=== PATIENT | male | born 1980 | race Caucasian/White ===

== ENCOUNTER → 2018-02-03 10:42 | Outpatient (CLI) | payer OTHER, SELFPAY ==
[2018-02-03 11:30] LABS: Basophils # 0.1 K/mm3 (0-0.2); Basophils % 0.7 % (0.1-2.0); Eosinophils # 0.3 K/mm3 (0.0-0.4); Eosinophils % 3.2 % (0.1-12.0); Hematocrit 46.7 % (42.0-52.0); Hemoglobin 15.5 g/dL (14.1-18.0); Lymphocytes # 2.4 K/mm3 (0.7-4.5); Lymphocytes % 27.8 % (10-50); Mean Corpuscular HGB Conc 33.2 g/dL (31.8-35.4); Mean Corpuscular Hemoglobin 31.4 pg (27.0-31.2); Mean Corpuscular Volume 94.4 fl (80-94); Mean Platelet Volume 8.4 fl (7.4-10.4); Monocytes # 0.5 K/mm3 (0.1-1.0); Monocytes % 6.3 % (1.7-9.3); Neutrophils # 5.3 K/mm3 (1.8-7.8); Neutrophils % 62.1 % (37.0-80.0); Platelet Count 290 K/mm3 (142-424); Red Blood Count 4.95 M/mm3 (4.60-6.20); White Blood Count 8.5 K/mm3 (4.8-10.8)
[2018-02-03 12:41] LABS: Potassium 4.8 mmoL/L (3.5-5.1); Sodium 141 mmol/L (136-145)
[2018-02-03 12:42] LABS: Alanine Aminotransferase 76 U/L (12-78); Albumin/Globulin Ratio 1.2 (1.1-1.8); Alkaline Phosphatase 79 U/L (46-116); Anion Gap 13.8 mEq/L (5-15); Aspartate Amino Transferase 18 U/L (15-37); Bilirubin,Total 0.6 mg/dL (0.2-1.0); Blood Urea Nitrogen 11 mg/dL (7-18); Calcium 9.1 mg/dL (8.5-10.1); Carbon Dioxide 29 mmol/L (21.0-32.0); Chloride 103 mmol/L (98-107); Chol/HDL Ratio 8.3 (1-3.5); Cholesterol 283 mg/dL (140-200); Creatinine,Serum 0.98 mg/dL (0.70-1.30); Estimated Glomerular Filt Rate 85 ml/min (>60); Free Thyroxine Index 2.6 ug/dL (5.93-13.13); GFR (African American) 103 ML/MIN (>60); Globulin 3.3 gm/dl (1.3-3.2); Glucose 95 mg/dL (74-106); HDL Cholesterol 34 mg/dL (27-67); LDL Cholesterol 198 mg/dL (0-130); Thyroid Stimulating Hormone 1.23 uIU/ml (0.358-3.740); Total Protein,Serum 7.3 gm/dL (6.4-8.2); Triglycerides 253 mg/dL (30-200); Triiodothryronine (T3) Uptake 32 % (31-39); VLDL Cholesterol 51 mg/dL (0-40)
[2018-02-04 21:29] LABS: Testosterone,Total 511 ng/dL (264-916); Vitamin B12 408 pg/mL (232-1245)
[2018-02-05 14:11] LABS: Vitamin D 25 Hydroxy 17.8 ng/mL (30.0-100.0)
== END ==
PROVIDERS: Visit Provider Internal Medicine Adolescent Medicine
DX: Z00.00 Encounter for general adult medical examination without abnormal findings (principal); R53.81 Other malaise; R53.83 Other fatigue
CPT/HCPCS: 36415; 80053; 80061; 82607; 82652; 84403; 84436; 84443; 84479; 85025

== ENCOUNTER → 2018-05-09 11:26 | Outpatient (CLI) | payer OTHER, SELFPAY ==
--- NOTE | 2018-05-09 11:32 | XR_ITS ---
XR knee LT 3V HISTORY: ITS.REASON: LT KNEE PAIN ORDERING PHYSICIAN: Antonio Kwon MD PATIENT AGE: 37 years COMPARISON: None FINDINGS: No fracture or dislocation. No lytic or blastic change. Normal mineralization. No significant arthritic changes evident. No other significant findings IMPRESSION: Negative Knee
== END ==
PROVIDERS: PCP Internal Medicine Adolescent Medicine; Visit Provider Internal Medicine Adolescent Medicine
DX: M25.562 Pain in left knee (principal)
CPT/HCPCS: 73562

== ENCOUNTER → 2019-12-21 13:07 | Outpatient (CLI) | payer OTHER, SELFPAY | PROVIDERS: Visit Provider Nurse Practitioner Family | DX: Z03.818 Encounter for observation for suspected exposure to other biological agents ruled out (principal) | CPT/HCPCS: U0003 ==

== ENCOUNTER → 2020-05-20 11:20 | Outpatient (CLI) | payer BC, SELFPAY ==
--- NOTE | 2020-05-20 11:29 | XR_ITS ---
PROCEDURE: XR KNEE RT 3V CLINICAL INDICATION: RT MEDIAL KNEE PAIN COMPARISON: CR [id number] XR knee LT 3V from 05/09/2018 FINDINGS: No fracture or dislocation. No lytic or blastic change. There is normal mineralization. There are mild osteoarthritic changes of the medial compartment. There is a small suprapatellar effusion. Other findings:None. IMPRESSION: Minimal osteoarthritic change with small knee joint effusion Dictated by: Merlin Beltrán MD 05/20/2020 12:24 Merlin Beltrán MD in [place] 05/20/2020 12:24
== END ==
PROVIDERS: PCP Internal Medicine Adolescent Medicine; Visit Provider Internal Medicine Adolescent Medicine
DX: M25.561 Pain in right knee (principal)
CPT/HCPCS: 73562

== ENCOUNTER → 2020-05-22 15:57 | Outpatient (CLI) | payer BC, SELFPAY ==
--- NOTE | 2020-05-22 16:04 | MR_ITS ---
PROCEDURE: MR KNEE RT WO CON CLINICAL INDICATION: RT MEDIAL KNEE PAIN Pt states he stood up about 2 weeks ago and something popped in his rt knee. Has had medial rt knee pain since. Prior rt knee x-ray done 05/20/2020. COMPARISON: CR XR KNEE RT 3V from 05/20/2020 TECHNIQUE: Routine multiplanar multi echo sequences are performed without gadolinium enhancement. FINDINGS: The cruciate ligaments, collateral ligaments, patellar tendon, and quadriceps tendon have an unremarkable appearance. A complex tear involves the posterior horn of the medial meniscus with both longitudinal and horizontal tear. Horizontal component extends anteriorly to the body of the medial meniscus with suggestion of a tiny meniscal cyst as seen on coronal images series 8, image 16 measuring approximately 2-3 mm. There is some bone marrow edema at this region involving the proximal tibia suggesting mild bone bruise. There is a small knee joint effusion. Small Bryson's cyst is present. There are mild osteoarthritic changes involving all 3 compartments. The patellar cartilage is preserved. IMPRESSION: Complex tear involves the posterior horn of the medial meniscus with extension into the body of the medial meniscus with a small meniscal cyst. Mild osteoarthritic changes with small knee joint effusion and minimal bone bruise of the medial and proximal aspect of the tibia Dictated by: Merlin Beltrán MD 05/24/2020 08:22 Merlin Beltrán MD in [place] 05/24/2020 08:22
== END ==
PROVIDERS: PCP Internal Medicine Adolescent Medicine; Visit Provider Internal Medicine Adolescent Medicine
DX: M25.561 Pain in right knee (principal)
CPT/HCPCS: 73721

== ENCOUNTER → 2020-05-28 12:53 | Outpatient (CLI) | payer BC, SELFPAY ==
--- NOTE | 2020-05-28 12:58 | XR_ITS ---
PROCEDURE: XR KNEE RT 4V CLINICAL INDICATION: RT knee pain COMPARISON: CR [id number] XR knee LT 3V from 05/09/2018 CR XR KNEE RT 3V from 05/20/2020 FINDINGS: No fracture or dislocation. No lytic or blastic change. There is normal mineralization. Minimal osteoarthritic changes are present involving the medial compartment. There is increased soft tissue density in the suprapatellar region suggesting small knee joint effusion. Other findings:None. IMPRESSION: Overall no change minimal osteoarthritic change medial compartment with small knee joint effusion Dictated by: Merlin Beltrán MD 05/28/2020 14:29 Merlin Beltrán MD in [place] 05/28/2020 14:29
== END ==
PROVIDERS: PCP Internal Medicine Adolescent Medicine; Visit Provider Orthopaedic Surgery
DX: M25.561 Pain in right knee (principal)
CPT/HCPCS: 73564

== ENCOUNTER → 2020-06-01 11:08 | Outpatient (CLI) | payer BC, SELFPAY ==
[2020-06-01 11:25] LABS: Basophils # 0.1 K/mm3 (0-0.2); Basophils % 0.6 % (0.1-2.0); Eosinophils # 0.3 K/mm3 (0.0-0.4); Eosinophils % 3.3 % (0.1-12.0); Hematocrit 43.6 % (42.0-52.0); Lymphocytes # 3.1 K/mm3 (0.7-4.5); Lymphocytes % 31.1 % (10-50); Mean Corpuscular HGB Conc 34.3 g/dL (31.8-35.4); Mean Corpuscular Hemoglobin 31.8 pg (27.0-31.2); Mean Corpuscular Volume 92.7 fl (80-94); Mean Platelet Volume 8.3 fl (7.4-10.4); Monocytes # 0.7 K/mm3 (0.1-1.0); Monocytes % 6.5 % (1.7-9.3); Neutrophils # 5.9 K/mm3 (1.8-7.8); Neutrophils % 58.6 % (37.0-80.0); Platelet Count 291 K/mm3 (142-424); Red Blood Count 4.71 M/mm3 (4.60-6.20); Red Cell Distribution Width 12.5 % (11.5-17.5)
[2020-06-01 12:11] LABS: Chloride 104 mmol/L (98-107); Potassium 4.3 mmoL/L (3.5-5.1); Sodium 138 mmol/L (136-145)
[2020-06-01 12:14] LABS: Anion Gap 13.3 mEq/L (5-15); Blood Urea Nitrogen 14 mg/dl (9-20); Calcium 9.7 mg/dl (8.4-10.2); Carbon Dioxide 25 mmol/L (22.0-30.0); Estimated Glomerular Filt Rate 93 ml/min (>60); GFR (African American) 113 ML/MIN (>60); Glucose 96 mg/dl (74-100)
[2020-06-01 12:38] LABS: Coronavirus 19 IgG Antibody Negative (Negative); Coronavirus 19 IgM Antibody Negative (Negative)
== END ==
PROVIDERS: Visit Provider Orthopaedic Surgery
DX: Z01.818 Encounter for other preprocedural examination (principal); Z20.822 Contact with and (suspected) exposure to COVID-19; M25.561 Pain in right knee
CPT/HCPCS: 36415; 80048; 85025; 86328

== ENCOUNTER 2020-06-02 07:30 | Day surgery (SDC) | payer BC, SELFPAY ==
[2020-06-01 16:00] VITALS: BMI 31.6
[2020-06-02] VITALS (10 sets, daily range): BP systolic 113–165; BP diastolic 62–93; PULSE 70–97; RESP 16–22; TEMP 36.4–43; O2SAT 96–99
--- NOTE | 2020-06-02 11:37 | HMH.ANESI ---
[facility] Anesthesia Record Part I Intake, IV Amount: 900 Estimated blood loss (mL): 5 Urine output (mL): 0 Blood Products used (#): none Blood Pressure: 158/93 SaO2: 96 Pulse Rate: 90 Respiratory Rate: 16 Temperature: 98.8 F Patient is:: Drowsy, Stable Stable to PACU at:: 11:30
--- NOTE | 2020-06-02 23:01 | HMH.OPNOTE ---
Date of procedure: 06/02/20 Pre-op Diagnosis:: R knee medial meniscus tear Post-op Diagnosis:: R knee: 1) medial meniscus tear 2) degenerative joint disease Procedure performed:: R knee arthroscopy, partial medial meniscectomy, chondroplasty medial femoral condyle Surgeon:: Azalia Nation MD Program Support Clerk(s):: Abimael YOUTH LEADER:: Joe Perry Anesthesia: GETA, local Estimated blood loss (mL): 10 Clinical Note:: 39-year-old gentleman presents for initial orthopedic evaluation of acute on chronic right knee pain. He started having pain a few weeks ago, when he got up from being on the ground. 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 He has had occasional, intermittent discomfort in this knee in the past but nothing this severe. When he got up off the ground, he felt a pop followed by a sharp pain in the knee that has not improved despite 2 weeks of rest, ice and diclofenac usage. He has seen his primary care physician, who ordered an MRI and x-rays. No previous surgeries on this knee, no known injuries. He is otherwise healthy with no chronic medical conditions, no prescription medications, no known drug allergies. He is a smoker, but is considering quitting soon. MRI revealed a large, complex medial meniscus tear; minimal degenerative changes seen on XR. I discussed treatment options with the patient, including both operative and non-operative treatments, and the patient would like to proceed with surgery at this time. I discussed the possibility of meniscus repair if the tear appears amenable to this at the time of surgery, as well as the possibility of partial meniscectomy. I discussed the risks of surgery with the patient, including but not limited to: bleeding, infection, bruising of the knee, neurovascular damage, intra-operative MCL injury or fracture, risk of post-operative tourniquet pain, persistent pain and/or limp despite surgery. The patient vocalized understanding and provided informed consent for the procedure. Operative findings:: suprapatellar pouch: no synovitis or loose bodies patellofemoral compartment: within normal limits gutters: no loose bodies notch: normal medial compartment: large complex tear of medial meniscus, most of anterior + posterior horns; grade 2-3 changes MFC lateral compartment: normal Operative note:: The patient was identified in preoperative holding and the R knee signed by myself. Consent was reviewed and confirmed with the patient, all questions answered. The patient was then taken to the OR and placed supine on the operative table. 1 g Ancef was infused and general anesthesia induced. The R leg was then placed in an arthroscopic leg reyna with a nonsterile tourniquet on the upper thigh. The leg was then prepped and draped in the usual sterile fashion for knee arthroscopy. Timeout was performed, identifying the correct patient, correct procedure, and correct site. The procedure was begun by first exsanguinating the R leg and inflating the tourniquet to 250 mmHg. Using an 11 blade, standard anterolateral and anteromedial portals were established on the knee, using normal anatomic landmarks. 30 degree arthroscope was inserted via the lateral portal into the suprapatellar pouch with the knee in extension. A superolateral outflow portal was then established under direct visualization with tubing connected to gravity. The patellofemoral joint was examined first and no focal defects seen across both medial and lateral facets of the patella. No plica, hypertrophic synovium or loose bodies were seen in the suprapatellar pouch. Medial and lateral gutters were checked and were seen to be free of loose bodies. I next dropped down into the medial compartment, where the patient's pathology appears to be confined. The weightbearing portion of the medial femoral condyle had grade 2-3 changes to the cartilage with inte
--- NOTE | 2020-06-04 07:57 | P.PN_ITS ---
[facility] Anesthesia Record Part II Discharge Time: 12:00 Destination: Surgical Day Care (OP Surgery) PACU nurse assessment reviewed?: Yes Patient Condition:: Good Anesthesia Complications:: None Swallowing reflex intact?: Yes Cyanosis?: No Blood Pressure: 127/72 Pulse Rate: 79 Temperature: 0 F (Not taken) Mental Status: Alert & Oriented Pain level:: 8 Nausea and/or vomitting:: None Intake, IV Amount: 800
[2020-06-04 07:58] VITALS: BP 127/72; PULSE 79; TEMP -17.7; TEMP 0
--- NOTE | 2020-06-04 13:31 | P.PN_ITS ---
[facility] Anesthesia Checklist - Patient Identification Patient Identification: Arm Band - Structural Data Admitted From: Home Planned Operative Procedure/s: Right Knee Arthroscopy Consent for Planned Operative Procedure(s) Verified: Yes Verified Documents: Surgical Consent, History and Physical - NPO Status Verified Time NPO: 00:00 - Additional verifications Anesthesia Reactions: Yes (nausea) Hx Blood Transfusions: No Blood Transfusion Reaction: No - Airway Assessment C-Spine Mobility Assessed: Yes (mp2) TMJ Mobility Assessed: Yes Dentition: Good Dentition - Neurological Assessment Level of Consciousness: Awake, Alert - Anesthesia Plan Anesthesia Risk discussed: Yes Anesthesia Plan: Verified ASA Class: II Anesthesia Type: General [facility] History I have reviewed the patient's past medical history: Yes Medical History: Denies:: Cancer, Diabetes Mellitus Type 1, Diabetes Mellitus Type 2, Internal Pacemaker, MRSA, Seizures *Have you ever received a pneumonia vaccine?: No *Have you received a flu vaccine this season?: No Other Medical History: Denies: Blood Transfusion Reaction Anesthesia experience/problems:: ponv Other Surgeries: No: Pacemaker Amputation: No - *Social History Last grade of school completed: GED Smoking Status: Current every day smoker Tobacco Type: cigarettes # Packs/Day (cigarettes): 1 Alcohol Intake: never Substance Use Type: denies use *Occupational Status:: employed Household Members: spouse, family *Travel in the last 8 weeks: None Family Hx:: No significant family history
== END 2020-06-02 12:48 | disposition home or self-care (01) ==
LOC: OR 07:32
PROVIDERS: PCP Internal Medicine Adolescent Medicine; Visit Provider Orthopaedic Surgery
PROC: (CPT 29870; principal; 2020-06-02 09:00)
DX: S83.241A Other tear of medial meniscus, current injury, right knee, initial encounter (principal); M17.11 Unilateral primary osteoarthritis, right knee
CPT/HCPCS: 29881; 96374; J2405

== ENCOUNTER 2020-08-07 10:30 | Outpatient (RCR) | payer BC, SELFPAY ==
--- NOTE | 2020-06-12 15:20 | HMH.PTOPEV ---
PT Outpatient Evaluation Rehab PT Outpatient Evaluation Start: 06/12/20 15:09 Freq: Status: Active Protocol: Document 06/12/20 15:09 SHAI (Rec: 06/12/20 15:20 SHAI [id number]) Electronically Signed By Tarun Myrick, PT 06/12/20 15:09 Outpatient Therapy Subjective History Subjective History Pt reports initial injury to R knee ~5 weeks, occurred ' getting up off the ground'. Pt sustained meniscus injury, underwent R knee scope w/ medial meniscectomy sx. on . Pt reports R knee was feeling 'pretty good, but I stepped in a hole this morning , and tweaked it pretty good'. Pt reports global R knee pain and stiffness this incident this am. 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 Chief Complaint Pain,Stiff,Swelling,Weakness Symptom Type Ache,Dull Symptoms Relieved By Rest/Positioning,Ice Symptoms Aggravated By Standing,Walking Prior Functional Limitations None Current Functional Limitations Standing,Squatting,Walking, Stairs Symptom Description Constant but Variable Level of pain today (0-10) 6 Pain scale - at its best (0-10) 3 Pain scale - at its worst (0-10) 8 Hip/Knee Eval Gait Observation General Gait Pattern Observation Antalgic Gait Assistive Device Assistive Devices None / NA Palpation Tenderness right Knee Palpation Finding Tenderness Knee Palpation Overall Comment MEDIAL, LATERAL, JT LINE, AND POPITEAL SPACE 3/4 MMT Hip Flexion Strength Grade 4 Good Hip Abduction Strength Grade 4- Good- Hip Adduction Strength Grade 3+ Fair+ Hip Extension Strength Grade 4 Good Hip External Rotation Strength Grade 4 Good Hip Internal Rotation Strength Grade 4 Good Knee Extension Strength Grade 4 Good Knee Flexion Strength Grade 4 Good ROM Knee Flexion Active Range of Motion ( 2-115 degrees) Knee Flexion Passive Range of Motion ( 0-120 degrees) Knee ROM Limitations Soft Tissue Tightness,Pain Outpatient Therapy Assessment Impairments Problems/Impairmments Palpation Tenderness,Impaired Range of Motion,Impaired Strength,Impaired Gait Pattern ,Impaired Walking,Impaired Standing,Impaired Stair Climbing,Im
--- NOTE | 2020-07-15 09:59 | HMH.RHREAS ---
Rehab Reassessment Rehab OP Re-assessment Start: 07/15/20 09:42 Freq: Status: Active Protocol: Document 07/15/20 09:42 SHAI (Rec: 07/15/20 09:59 SHAI [id number]) Electronically Signed By Tarun Myrick, PT 07/15/20 09:42 Rehab Re-assessment Subjective Subjective Pt reports recent MD follow-up for R knee w/injection ' steroid I guess, last Monday, and it feels a lot better'. Pt reports now off work until at least 08/07, 'and I can actually bend it now without pain, and steps aren't nearly as bad'. Pt reports 0-1/10 R knee @ rest, and 3-4/10 R knee pain with stairs Objective Objective Notes AROM: R KNEE 0-120 (PAIN AT END FLX ROM) MMT: R KNEE EXT 4+/5, R KNEE FLX 4-4+/5, R HIP ABD,EXT 4+-5 /5, R HIP ADD 4/5 W/PAIN MEDIAL JT LINE TTP: R KNEE MEDIAL JT LINE AND MEDIAL PLICA 0/4 GAIT: WFL ON LEVEL TERRRAIN Assessment Progress Assessment Progressing as Expected Assessment Notes IMPROVED ROM, STRENGTH, TTP, AND GAIT Patient goals met STG'S 09/20 LTG'S 05/24 Goals Not Met LTG'S 08/23 Plan Plan PT TO CONT. W/SKILLED P.T. TO MAKE FURTHER IMPROVEMENTS IN R KNEE/LE STRENGTH, TTP, ROM, AND GAIT TO ALLOW FOR OPTIMAL FUNCTION AND RETURN TO WORK FULL DUTY Frequency of Therapy 2-3X/WK Duration of therapy 4-6WKS Time and Billing Re-Eval Time 15 Re-Eval Billing Units 1 PHYSICIAN CERTIFICATION: I certify the specified therapy services for Ovidio Rubio are required, authorized, and reviewed every 30 days.
== END 2020-08-07 10:35 | disposition home or self-care (01) ==
LOC: PT 10:30
PROVIDERS: PCP Internal Medicine Adolescent Medicine; Visit Provider Orthopaedic Surgery
DX: S83.231D Complex tear of medial meniscus, current injury, right knee, subsequent encounter (principal)
CPT/HCPCS: 97010; 97014; 97016; 97033; 97035; 97110; 97163; 97164; G0283

== ENCOUNTER 2020-10-09 11:28 | Emergency (ER) | payer BC, SELFPAY ==
[2020-10-09 12:29] VITALS: BP 00/00; PULSE 0; RESP 0; TEMP -17.7; TEMP 0
== END 2020-10-09 12:31 | disposition left against medical advice (07) ==
PROVIDERS: Emergency Provider Nurse Practitioner Family; PCP Internal Medicine Adolescent Medicine
DX: Z53.21 Procedure and treatment not carried out due to patient leaving prior to being seen by health care provider (principal)